=== PATIENT | male | born 1995 | race Caucasian/White ===

== ENCOUNTER 2021-02-09 19:11 | Emergency (ER) | payer MEDICAID ==
[~2021-02-09] VITALS: Ht 170.2 cm; Wt 95.3 kg
[2021-02-09 19:13] VITALS: BP 132/79
[2021-02-09 19:36] VITALS: BP 132/79
== END 2021-02-09 19:36 | disposition home or self-care (01) ==
LOC: MED 19:11
DX: R41.82 Altered mental status, unspecified (principal)
CPT/HCPCS: 93005; 99283